=== PATIENT | male | born 1995 | race African-American/Black ===

== ENCOUNTER 2018-04-20 09:02 | Emergency (ER) | END 2018-04-20 13:10 | disposition home or self-care (01) ==

== ENCOUNTER 2018-06-04 09:41 | Emergency (ER) | END 2018-06-04 10:06 | disposition home or self-care (01) ==

== ENCOUNTER 2018-08-19 09:22 | Emergency (ER) | payer OTHER ==
[~2018-08-19] VITALS: Ht 172.7 cm; Wt 77.3 kg
[~2018-08-19 09:22] MED LIST: ACET500C5 PO; AZIT250T PO; GUAI120S26 PO; IBUP-1542 PO; NAPR-985 PO
[2018-08-19 09:23] VITALS: BP 137/59; PULSE 91; RESP 18; Ht 172.7 cm; Wt 77.3 kg
[2018-08-19] MEDS ORDERED: ACETAMINOPHEN 500 MG TAB PO STA (09:46)
[2018-08-19] MEDS ORDERED: D-ME473S2 PO (09:50)
[2018-08-19] MEDS ORDERED: ACET500C5 PO (09:50)
[2018-08-19] MEDS ORDERED: AMOX500C2 PO (09:50)
--- NOTE | 2018-08-19 10:31 | ERD ---
ER Documentation Chief Complaint Chief Complaint sore throat,headache,cough x 3days HPI This is a 23-year-old male with a nonsignificant past medical history presents ED with complaints of sore throat times 3 days. Patient admits to headache, difficulty swallowing and runny nose. Patient also admits to mild cough. Denies fever, chills, sputum production, trouble breathing, shortness of breath, nausea, vomiting, diarrhea, constipation. Patient is here requesting antibiotics as he has had similar symptoms in the past and would like to be treated with antibiotics. No known drug allergies ROS All systems reviewed and are negative except as per history of present illness. Medications Home Meds Active Scripts Acetaminophen* (Tylophen*) 500 Mg Capsule, 1 CAP PO Q6H PRN for PAIN AND OR ELEVATED TEMP, #20 CAP Prov:EMILIO SUN PA-C 08/19/18 Dextromethorphan Hb-Promethazine Hcl* (Promethazine DM* Syrup) 473 Ml Syrup, 5 ML PO Q6 PRN for COUGH for 5 Days, ML Prov:EMILIO SUN PA-C 08/19/18 Amoxicillin* (Amoxicillin*) 500 Mg Cap, 500 MG PO TID for 10 Days, CAP Prov:EMILIO SUN PA-C 08/19/18 Qmbqwpootsa-Q-Kysxfnumnv Hb* (Guaifenesin* DM Syrup) 120 Ml Syrup, 10 ML PO Q4H PRN for COUGH for 5 Days, ML Prov:BONNIE GÓMEZ 06/04/18 Ibuprofen* (Motrin*) 600 Mg Tab, 600 MG PO Q6, #30 TAB Prov:BONNIE GÓMEZ 06/04/18 Azithromycin* (Zithromax*) 250 Mg Tablet, 250 MG PO .DrakePACK DIRECTED, #6 TAB TAKE 500 MG (2 TABS) THE FIRST DAY THEN 250 MG (1 TAB) DAYS 2-5 Prov:BONNIE GÓMEZ 06/04/18 Acetaminophen* (Tylophen*) 500 Mg Capsule, 1 CAP PO Q6H PRN for PAIN AND OR ELEVATED TEMP, #30 CAP Prov:ALLI YOUNGER PA-C 04/20/18 Naproxen* (Naprosyn*) 500 Mg Tablet, 500 MG PO BID PRN for PAIN AND/OR INFLAMMATION, #30 TAB Prov:ALLI YOUNGER PA-C 04/20/18 Allergies Allergies: Coded Allergies: No Known Allergy (Unverified , 04/20/18) PMhx/Soc History of Surgery: No Anesthesia Reaction: No Hx Neurological Disorder: No Hx Respiratory Disorders: No Hx Cardiac Disorders: No Hx Psychiatric Problems: No Hx Miscellaneous Medical Probl: No Hx Alcohol Use: Yes Hx Substance Use: Yes Hx Tobacco Use: Yes Smoking Status: Never smoker FmHx Family History: No diabetes Physical Exam Vitals Vital Signs Date Temp Pulse Resp B/P (MAP) Pulse Ox O2 O2 Flow FiO2 Time Delivery Rate 08/19/18 99.2 91 18 137/59 99 09:23 (85) Physical Exam Const: No acute distress Head: Atraumatic Eyes: Normal Conjunctiva ENT: Normal External Ears, Nose and Mouth. There is tonsillar adenopathy with erythema, no exudate, no kissing tonsils, no uvula deviation, tympanic membrane visualized bilaterally no bulging, erythema, purulent air-fluid line seen, clear rhinorrhea present in naris Neck: Full range of motion. No meningismus. Resp: Clear to auscultation bilaterally with no wheezes rhonchi rales Cardio: Regular rate and rhythm, no murmurs Back: No midline or flank tenderness Ext: No cyanosis, or edema Neur: Awake and alert Psych: Normal Mood and Affect Results 24 hrs Current Medications Medications Dose Sig/Bita Start Time Status Last (Trade) Ordered Route PRN Stop Time Admin Dose Reason Admin 1,000 mg ONCE STAT 08/19/18 DC 08/19/18 Acetaminophen PO 09:46 08/19/18 09:57 (Tylenol 09:47 Tab) Procedures/MDM ER COURSE: The patient was stable throughout ED course. I kept the patient and/or family informed of laboratory and diagnostic imaging results throughout the emergency room course. The patient was promptly evaluated and a treatment plan was devised based on H&P and other data. This plan was discussed with the patient who agreed and had no further questions or concerns prior to discharge. MEDICAL DECISION MAKING: This is a 23-year-old male who presents ED with sore throat headache and cough times 3 days. Of utmost concern the patient is a sore throat. Advised patient that we can do a strep swab to rule out strep pharyngitis. Patient does not want to do this and would like to be treated with antibiotics for strep pharyngitis. I advised patient to watch and wait to take antibiotics. At this time there is no ENT or pulmonary emergency. No evidence of sepsis, peritonsillar abscess, retropharyngeal abscess, epiglottitis, Arnoldo's, mastoiditis, pneumonia, pleural effusion, pneumothorax, tension pneumothorax, pulmonary embolism, among others. Patient's vitals are stable he can be managed close outpatient follow-up. Advised patient follow-up with primary care in 48 hours. Return to ED if worsening symptoms DISPOSITION PLAN: We discussed follow up with the patient's primary care doctor within 24 to 48 hours. Patient counseled regarding my diagnostic impression and care plan. Prior to discharge all questions answered. Pt agrees with treatment plan and understands strict return precautions. Precautionary instructions provided including instructions to return to the ER if not improving or for any worsening or changing symptoms or concerns. ExitCare instructions provided. Prior to discharge, patients vital signs have been reviewed SPECIALIST FOLLOW UP RECOMMENDED: None Patient has been advised to follow up with primary care in 1-2 days. Disclaimer: Inadvertent spelling and grammatical errors are likely due to EHR/dictation software use and do not reflect on the overall quality of patient care. Also, please note that the electronic time recorded on this note does not necessarily reflect the actual time of the patient encounter. Blood Pressure Assessment: Patient's blood pressure was elevated (>120/80) but appears stable without evidence of hypertension emergency or urgency. The patient was counseled about the risks of hypertension and urged to pursue ou tpatient monitoring and therapy within a week with their primary care physician. Departure Diagnosis: Primary Impression: Sore throat Condition: Stable Patient Instructions: When You Have a Sore Throat, Self-Care for Sore Throats Referrals: COMMUNITY CLINICS YOU HAVE RECEIVED A MEDICAL SCREENING EXAM AND THE RESULTS INDICATE THAT YOU DO NOT HAVE A CONDITION THAT REQUIRES URGENT TREATMENT IN THE EMERGENCY DEPARTMENT. FURTHER EVALUATION AND TREATMENT OF YOUR CONDITION CAN WAIT UNTIL YOU ARE SEEN IN YOUR DOCTORS OFFICE WITHIN THE NEXT 1-2 DAYS. IT IS YOUR RESPONSIBILITY TO MAKE AN APPOINTMENT FOR FOLOW-UP CARE. IF YOU HAVE A PRIMARY DOCTOR --you should call your primary doctor and schedule an appointment IF YOU DO NOT HAVE A PRIMARY DOCTOR YOU CAN CALL OUR PHYSICIAN REFERRAL HOTLINE AT IF YOU CAN NOT AFFORD TO SEE A PHYSICIAN YOU CAN CHOSE FROM THE FOLLOWING [facility] [address] [facility] [address] [facility] [address] [facility] [address] [facility] [phone] [id number] [facility] [address] Additional Instructions: Patient advised to return to the ED immediately for new or worsening symptoms. Patient advised to follow up with primary care provider in the next 24-48 hours. Patient verbalized understanding and agrees with treatment plan and course of action. If patient has no primary care they may follow up with one of the formerly [facility] clinics listed on the following page or one of the options listed below [facility] [address] [place] [address] or [facility] [address] [place] [address] [address] [facility] [address] [place] [address] EMILIO SUN PA-C Aug 19, 2018 10:31
== END 2018-08-19 10:01 | disposition home or self-care (01) ==
LOC: FTE 09:22
DX: J02.9 Acute pharyngitis, unspecified (principal)
CPT/HCPCS: Z7502; Z7610; 99283